=== PATIENT | male | born 1955 | race Caucasian/White ===

== ENCOUNTER 2020-01-08 13:24 | Emergency (ER) | payer SELFPAY ==
[2020-01-08] MEDS ORDERED: Ondansetron PF 4 MG/2 ML Vial ONE (14:16)
[2020-01-08 14:29] LABS: #Lymphocytes 1.4 thou/uL (1.20-3.40); #Monocytes 0.5 thou/uL (0.11-0.59); %Basophils 0.7 % (0.0-1.0); %Eosinophils 0.5 % (0.0-10.0); %Lymphocytes 20.5 % (21.0-51.0); %Monocytes 6.7 % (0.0-10.0); %Neutrophils 71.7 % (42.0-75.0); Hemoglobin 10.2 g/dL (14.0-18.0); Mean Corpuscular HGB CONC 35.3 g/dL (32.0-36.0); Mean Corpuscular Hemoglobin 32.9 pg (27.0-31.0); Mean Corpuscular Volume 93.1 fL (78.0-98.0); Mean Platelet Volume 5.8 fL (7.4-10.4); Platelet Count 327 thou/uL (130-400); RBC Distribution Width 12.6 % (11.5-14.5)
--- NOTE | 2020-01-08 14:35 | RAD ---
PORTABLE CHEST 1 VIEW: DATE: 01/08/2020. TIME: 2:27 PM. HISTORY: Altered mental status. Orthostatic hypotension. FINDINGS: There are no previous exams for comparison. The heart size is normal. The aorta is tortuous. The lungs are well expanded without lobar consolid ation, pneumothoraces, or pleural effusions. IMPRESSION: No acute process. POS: [facility]
[2020-01-08 14:44] LABS: ALT (SGPT) 8 U/L (8-55); AST (SGOT) 12 U/L (5-34); Albumin 3.9 g/dL (3.4-4.8); Alkaline Phosphatase 56 U/L (40-110); Anion Gap 12 mmol/L (10-20); BUN (Urea Nitrogen) 20 mg/dL (8.4-25.7); Bilirubin, Total 0.5 mg/dL (0.2-1.2); CK (CPK) 89 U/L (30-200); Calc. Creatinine Clearance 0 mL/min (70-130); Calcium 9.3 mg/dL (7.8-10.44); Carbon Dioxide 31 mmol/L (23-31); Chloride 96 mmol/L (98-107); Estimated GFR-MDRD 64; Globulin 2.6 g/dL (2.4-3.5); Glucose 130 mg/dL (80-115); Lipase 24 U/L (8-78); Potassium 4.6 mmol/L (3.5-5.1); Protein, Total 6.5 g/dL (5.8-8.1); Sodium 134 mmol/L (136-145)
[2020-01-08 15:15] LABS: Bilirubin Negative (Negative); Blood, Urine Negative (Negative); Clarity Clear (Clear); Glucose, Urine (Dipstick) Normal (Negative); Leukocyte Negative Leu/uL (Negative); Nitrite Negative (Negative); Protein, Urine (Dipstick) 10 mg/dL (Neg-Trace); Urobilinogen Normal mg/dL (Less than 2)
[2020-01-08] MEDS ORDERED: Lorazepam 2 MG/ML VIAL ONE (15:19)
--- NOTE | 2020-01-10 14:58 | EKG ---
Test Reason : Blood Pressure : / mmHG Vent. Rate : 071 BPM Atrial Rate : 071 BPM P-R Int : 150 ms QRS Dur : 080 ms QT Int : 420 ms P-R-T Axes : 080 -26 -34 degrees QTc Int : 456 ms Normal sinus rhythm Septal infarct , age undetermined Abnormal ECG Confirmed by MAGNOLIA GOMEZ, ELIDA ([id number]), telegraph editor SKYLER YADAV ([id number]) on 01/10/2020 2:58:22 PM Referred By: Confirmed By:ELIDA MERIDA MD
== END 2020-01-08 17:26 ==
LOC: ERS 13:24
DX: I95.9 Hypotension, unspecified (principal); E11.9 Type 2 diabetes mellitus without complications
CPT/HCPCS: 36415; 71045; 80053; 81003; 82550; 83690; 83880; 84484; 85025; 93005; 96361; 96374; J2060; J2405

== ENCOUNTER 2020-01-20 22:18 | Inpatient (IN) | payer OTHER ==
[2020-01-20] MEDS ORDERED: Cefepime 2 GM VIAL ONE (22:44)
[2020-01-20] MEDS ORDERED: Vancomycin 1 GM/200 ML BAG ONE (22:44)
[2020-01-20 22:54] LABS: Bilirubin Negative (Negative); Blood, Urine Negative (Negative); Clarity Clear (Clear); Glucose, Urine (Dipstick) Normal (Negative); Leukocyte Negative Leu/uL (Negative); Nitrite Negative (Negative); Protein, Urine (Dipstick) 20 mg/dL (Neg-Trace); Urobilinogen 3 mg/dL (Less than 2)
[2020-01-20 22:56] LABS: #Lymphocytes 0.5 thou/uL (1.20-3.40); #Monocytes 0.6 thou/uL (0.11-0.59); #Neutrophils 8.3 thou/uL (1.40-6.50); %Basophils 0.1 % (0.0-1.0); %Eosinophils 0.1 % (0.0-10.0); %Monocytes 5.9 % (0.0-10.0); %Neutrophils 88.9 % (42.0-75.0); Hemoglobin 10.2 g/dL (14.0-18.0); Mean Corpuscular HGB CONC 37.1 g/dL (32.0-36.0); Mean Corpuscular Hemoglobin 34.2 pg (27.0-31.0); Mean Corpuscular Volume 92.3 fL (78.0-98.0); Mean Platelet Volume 5.9 fL (7.4-10.4); Platelet Count 332 thou/uL (130-400); RBC Distribution Width 12.4 % (11.5-14.5); Red Blood Cell (RBC) Count 2.98 mill/uL (4.70-6.10); White Blood Cell (WBC) Count 9.3 thou/uL (4.8-10.8)
--- NOTE | 2020-01-20 23:01 | RAD ---
RADIOGRAPH CHEST 1 VIEW: DATE: 01/20/2020 TIME: 10:49 PM HISTORY: 64-year-old male with hypotension and fever COMPARISON: 01/08/2020 FINDINGS: There is a new finding of a patchy, approximately 6.5 x 4.5 cm opacity at the right medial lung base, silhouetting the right cardiac border. There is another new finding of mild small region of streaky density at the medial base of the left l ower lobe. The rest of the visualized lung parikh are clear. No pneumothorax. IMPRESSION: 1. Focal opacity at right medial lung base: Atelectasis versus pneumonia. 2. Mild streaky density at medial base of left lower lobe: Mild atelectasis versus pneumonia.
[2020-01-20 23:07] LABS: ALT (SGPT) 9 U/L (8-55); AST (SGOT) 13 U/L (5-34); Albumin 3.7 g/dL (3.4-4.8); Alkaline Phosphatase 49 U/L (40-110); Anion Gap 15 mmol/L (10-20); BUN (Urea Nitrogen) 21 mg/dL (8.4-25.7); Bilirubin, Total 0.8 mg/dL (0.2-1.2); Calc. Creatinine Clearance 0 mL/min (70-130); Calcium 8.6 mg/dL (7.8-10.44); Carbon Dioxide 29 mmol/L (23-31); Chloride 99 mmol/L (98-107); Estimated GFR-MDRD 76; Globulin 2.5 g/dL (2.4-3.5); Glucose 149 mg/dL (80-115); Potassium 3.5 mmol/L (3.5-5.1); Protein, Total 6.2 g/dL (5.8-8.1); Sodium 139 mmol/L (136-145)
[2020-01-20 23:23] LABS: INR-International Normal Ratio 1.1
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
[2020-01-21] MEDS ORDERED: Acetaminophen 650 MG Suppository PR PRN (00:38)
[2020-01-21] MEDS ORDERED: Dextrose 50% Abboject 50 ML SYRINGE SLOW IVP PRN (00:42)
[2020-01-21] MEDS ORDERED: Dextrose 5% in Water 1,000 ML IV PRN (00:42)
[2020-01-21 01:53] LABS: Lactic Acid 1.4 mmol/L (0.5-2.2)
[2020-01-21] MEDS ORDERED: Milk Of Magnesia 30 ML UDCUP PO PRN (02:15)
[2020-01-21 05:08] VITALS: BMI 23.0
[2020-01-21 06:42] LABS: ALT (SGPT) 7 U/L (8-55); AST (SGOT) 11 U/L (5-34); Albumin 3.2 g/dL (3.4-4.8); Alkaline Phosphatase 46 U/L (40-110); Anion Gap 12 mmol/L (10-20); BUN (Urea Nitrogen) 20 mg/dL (8.4-25.7); Bilirubin, Total 0.7 mg/dL (0.2-1.2); Calc. Creatinine Clearance 90 mL/min (70-130); Calcium 7.9 mg/dL (7.8-10.44); Carbon Dioxide 27 mmol/L (23-31); Chloride 101 mmol/L (98-107); Estimated GFR-MDRD 83; Globulin 2.4 g/dL (2.4-3.5); Glucose 192 mg/dL (80-115); Potassium 3.5 mmol/L (3.5-5.1); Protein, Total 5.6 g/dL (5.8-8.1); Sodium 136 mmol/L (136-145)
[2020-01-21 06:58] LABS: #Lymphocytes 0.8 thou/uL (1.20-3.40); #Monocytes 1.2 thou/uL (0.11-0.59); #Neutrophils 14.1 thou/uL (1.40-6.50); %Basophils 0.2 % (0.0-1.0); %Eosinophils 0.1 % (0.0-10.0); %Lymphocytes 5.2 % (21.0-51.0); %Monocytes 7.3 % (0.0-10.0); %Neutrophils 87.3 % (42.0-75.0); Hemoglobin 9.1 g/dL (14.0-18.0); Mean Corpuscular HGB CONC 36.3 g/dL (32.0-36.0); Mean Corpuscular Hemoglobin 33.6 pg (27.0-31.0); Mean Corpuscular Volume 92.6 fL (78.0-98.0); Mean Platelet Volume 6.3 fL (7.4-10.4); Platelet Count 296 thou/uL (130-400); RBC Distribution Width 12.4 % (11.5-14.5); Red Blood Cell (RBC) Count 2.72 mill/uL (4.70-6.10); White Blood Cell (WBC) Count 16.2 thou/uL (4.8-10.8)
--- NOTE | 2020-01-21 07:38 | CT ---
PRELIMINARY REPORT/[facility]/EMERGENCY AFTER HOURS PROCEDURE: This report was discussed with Dylan Brown DO by Lang Davies on Jan 21, 2020 02:11:00 CDT. Addendum electronically signed by Lang Davies on January 21, 2020 2:11:05 AM CDT EXAM: CT Head Without Intravenous Contrast. CLINICAL HISTORY: Fall, AMS TECHNIQUE: Axial computed tomography images of the head/brain without intravenous contrast. COMPARISON: None provided. FINDINGS: BRAIN: No acute intraparenchymal hemorrhage. No mass lesion. No CT evidence for acute territorial inf arct. No midline shift or extra-axial collection. Hypodensity within the right basal ganglia possibl y from prior lacunar infarct. VENTRICLES: Prominence of the ventricles. No sub-ependymal edema. ORBITS: The orbits are unremarkable. SINUSES AND MASTOIDS: The paranasal sinuses and mastoid air cells are clear. SOFT TISSUES: No significant facial or scalp soft tissue swelling evident. No radiopaque foreign body is seen. BONES: No acute skull fracture. IMPRESSION: 1. No acute intracranial hemorrhage. 2. Enlargement of the ventricles out of proportion to sulcal enlargement which is concerning for pos sible normal pressure hydrocephalus. Correlate with clinical symptoms. ELECTRONICALLY SIGNED BY: Emre Culver M.D. Jan 21, 2020 2:07:35 AM CDT This report is intended for review by the ordering physician only, in accordance of law. If you recei ve this report in error, please call [facility] at [phone]. FINAL REPORT CT OF BRAIN WITHOUT CONTRAST: Date: 01/21/2020 INDICATION: History of fall with altered mental status. COMPARISON: None. FINDINGS: No acute infarct, hemorrhage, or hydrocephalus is present. The septum pellucidum and third ventricle are midline. Skull and extracranial soft tissues appear within normal limits. There is prominent Virc how-Fox space involving the right inferior globus pallidus. There is mild generalized cerebral atro phy. There is slight prominence of the lateral ventricles likely related to the slight generalized vo lume loss. IMPRESSION: No definite acute intracranial abnormality. I agree with the preliminary report provided by [facility]. The density involving the inferior right globus pallidus is likely reflective of a Virchow-Fox spac e rather than a lacunar infarct. There is mild generalized cerebral atrophy with some accentuation of the lateral ventricles, likely from ex-vacuo dilation. POS: [facility]
[2020-01-21] MEDS ORDERED: Fludrocortisone Acetate 0.1 MG TAB PO SCH ×2 (09:00→10:30)
[2020-01-21] MEDS: Citalopram 20 MG TAB PO SCH (09:12)
[2020-01-21] MEDS: Atorvastatin Calcium 20 MG TAB PO SCH (09:13)
[2020-01-21] MEDS: Docusate 100 MG CAP PO SCH (09:13)
[2020-01-21] MEDS: Famotidine 20 MG TAB PO SCH ×2 (09:13→21:43)
[2020-01-21] MEDS: metFORMIN 500 MG TAB PO SCH ×2 (09:13→17:37)
[2020-01-21] MEDS: Sodium Chloride 1 GM TAB PO SCH ×3 (09:13→21:43)
[2020-01-21] MEDS ORDERED: Azithromycin 500 MG in Sodium Chloride 0.9% 250 ML 250 ML IVPB SCH (10:15)
[2020-01-21] MEDS: Ondansetron PF 4 MG/2 ML Vial IVP PRN (10:36)
[2020-01-21] MEDS ORDERED: Vancomycin HCl 1.25 GM in Sodium Chloride 0.9% 250 ML 250 ML IVPB SCH (11:00)
[2020-01-21] MEDS ORDERED: Cefepime 2 GM in Sodium Chloride 0.9% 100 ML IVPB SCH (11:00)
[2020-01-21] MEDS: cefTRIAXone\\ROCEPHIN 1 GM in Sodium Chloride 0.9% 100 ML IVPB SCH (12:55)
[2020-01-22 05:30] LABS: #Lymphocytes 1.2 thou/uL (1.20-3.40); #Monocytes 0.7 thou/uL (0.11-0.59); #Neutrophils 9.4 thou/uL (1.40-6.50); %Basophils 0.1 % (0.0-1.0); %Eosinophils 0.2 % (0.0-10.0); %Lymphocytes 10.6 % (21.0-51.0); %Monocytes 6.1 % (0.0-10.0); Hemoglobin 8.3 g/dL (14.0-18.0); Mean Corpuscular Hemoglobin 34.7 pg (27.0-31.0); Mean Corpuscular Volume 93.7 fL (78.0-98.0); Mean Platelet Volume 6.1 fL (7.4-10.4); Platelet Count 225 thou/uL (130-400); RBC Distribution Width 12.3 % (11.5-14.5); Red Blood Cell (RBC) Count 2.38 mill/uL (4.70-6.10); White Blood Cell (WBC) Count 11.3 thou/uL (4.8-10.8)
[2020-01-22 05:53] LABS: ALT (SGPT) Less than 7 U/L (8-55); AST (SGOT) 10 U/L (5-34); Alkaline Phosphatase 45 U/L (40-110); Anion Gap 12 mmol/L (10-20); BUN (Urea Nitrogen) 14 mg/dL (8.4-25.7); Bilirubin, Total 0.7 mg/dL (0.2-1.2); Calc. Creatinine Clearance 104 mL/min (70-130); Calcium 8.2 mg/dL (7.8-10.44); Carbon Dioxide 28 mmol/L (23-31); Chloride 99 mmol/L (98-107); Estimated GFR-MDRD Greater than 90; Globulin 2.5 g/dL (2.4-3.5); Glucose 130 mg/dL (80-115); Potassium 3.9 mmol/L (3.5-5.1); Protein, Total 5.5 g/dL (5.8-8.1); Sodium 135 mmol/L (136-145)
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
[2020-01-22] MEDS: Famotidine 20 MG TAB PO SCH ×2 (09:37→23:12)
[2020-01-22] MEDS: metFORMIN 500 MG TAB PO SCH ×2 (09:37→16:28)
[2020-01-22] MEDS: Sodium Chloride 1 GM TAB PO SCH ×3 (09:37→23:12)
[2020-01-22] MEDS: Citalopram 20 MG TAB PO SCH (09:38)
[2020-01-22] MEDS: Atorvastatin Calcium 20 MG TAB PO SCH (09:38)
[2020-01-22] MEDS: Fludrocortisone Acetate 0.1 MG TAB PO SCH (09:38)
[2020-01-22] MEDS: Docusate 100 MG CAP PO SCH (09:38)
[2020-01-22] MEDS: Ondansetron PF 4 MG/2 ML Vial IVP PRN (09:52)
[2020-01-22] MEDS ORDERED: Azithromycin 250 MG in Sodium Chloride 0.9% 500 ML IVPB SCH (10:00)
[2020-01-22] MEDS: cefTRIAXone\\ROCEPHIN 1 GM in Sodium Chloride 0.9% 100 ML IVPB SCH (12:57)
[2020-01-23 05:13] LABS: #Lymphocytes 1.1 thou/uL (1.20-3.40); #Monocytes 0.6 thou/uL (0.11-0.59); #Neutrophils 7.6 thou/uL (1.40-6.50); %Basophils 0.1 % (0.0-1.0); %Eosinophils 0.2 % (0.0-10.0); %Lymphocytes 11.8 % (21.0-51.0); %Neutrophils 81.9 % (42.0-75.0); Hemoglobin 8.2 g/dL (14.0-18.0); Mean Corpuscular HGB CONC 35.7 g/dL (32.0-36.0); Mean Corpuscular Hemoglobin 33.4 pg (27.0-31.0); Mean Corpuscular Volume 93.7 fL (78.0-98.0); Platelet Count 240 thou/uL (130-400); RBC Distribution Width 12.1 % (11.5-14.5); Red Blood Cell (RBC) Count 2.45 mill/uL (4.70-6.10); White Blood Cell (WBC) Count 9.2 thou/uL (4.8-10.8)
[2020-01-23 05:39] LABS: ALT (SGPT) 11 U/L (8-55); AST (SGOT) 11 U/L (5-34); Albumin 3.1 g/dL (3.4-4.8); Alkaline Phosphatase 46 U/L (40-110); Anion Gap 8 mmol/L (10-20); BUN (Urea Nitrogen) 10 mg/dL (8.4-25.7); Bilirubin, Total 0.5 mg/dL (0.2-1.2); Calc. Creatinine Clearance 116 mL/min (70-130); Calcium 8.1 mg/dL (7.8-10.44); Carbon Dioxide 32 mmol/L (23-31); Chloride 101 mmol/L (98-107); Estimated GFR-MDRD Greater than 90; Globulin 2.1 g/dL (2.4-3.5); Glucose 133 mg/dL (80-115); Potassium 3.3 mmol/L (3.5-5.1); Protein, Total 5.2 g/dL (5.8-8.1); Sodium 138 mmol/L (136-145)
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
[2020-01-23] MEDS: Citalopram 20 MG TAB PO SCH (08:36)
[2020-01-23] MEDS: metFORMIN 500 MG TAB PO SCH ×2 (08:36→16:16)
[2020-01-23] MEDS: Docusate 100 MG CAP PO SCH (08:37)
[2020-01-23] MEDS: Atorvastatin Calcium 20 MG TAB PO SCH (08:37)
[2020-01-23] MEDS: Sodium Chloride 1 GM TAB PO SCH ×3 (08:37→20:15)
[2020-01-23] MEDS: Fludrocortisone Acetate 0.1 MG TAB PO SCH (08:37)
[2020-01-23] MEDS: Famotidine 20 MG TAB PO SCH ×2 (08:37→20:15)
[2020-01-23] MEDS: Azithromycin 250 MG TAB PO SCH (09:44)
[2020-01-23] MEDS: Cefdinir 300 MG CAP PO SCH ×2 (09:44→20:14)
[2020-01-23] MEDS: HumaLOG 300 UNITS/3 ML VIAL SC PRN (17:14)
[2020-01-24 05:53] LABS: #Lymphocytes 1.2 thou/uL (1.20-3.40); #Monocytes 0.6 thou/uL (0.11-0.59); #Neutrophils 5.7 thou/uL (1.40-6.50); %Basophils 0.1 % (0.0-1.0); %Eosinophils 0.2 % (0.0-10.0); %Lymphocytes 16.3 % (21.0-51.0); %Monocytes 7.7 % (0.0-10.0); %Neutrophils 75.8 % (42.0-75.0); Hemoglobin 9.2 g/dL (14.0-18.0); Mean Corpuscular HGB CONC 36.2 g/dL (32.0-36.0); Mean Corpuscular Hemoglobin 33.7 pg (27.0-31.0); Mean Corpuscular Volume 93.2 fL (78.0-98.0); Mean Platelet Volume 6.1 fL (7.4-10.4); Platelet Count 302 thou/uL (130-400); Red Blood Cell (RBC) Count 2.72 mill/uL (4.70-6.10); White Blood Cell (WBC) Count 7.6 thou/uL (4.8-10.8)
[2020-01-24 06:17] LABS: ALT (SGPT) 10 U/L (8-55); AST (SGOT) 12 U/L (5-34); Albumin 3.2 g/dL (3.4-4.8); Alkaline Phosphatase 53 U/L (40-110); Anion Gap 10 mmol/L (10-20); BUN (Urea Nitrogen) 9 mg/dL (8.4-25.7); Bilirubin, Total 0.4 mg/dL (0.2-1.2); Calc. Creatinine Clearance 118 mL/min (70-130); Calcium 8.6 mg/dL (7.8-10.44); Carbon Dioxide 33 mmol/L (23-31); Chloride 97 mmol/L (98-107); Estimated GFR-MDRD Greater than 90; Globulin 2.7 g/dL (2.4-3.5); Glucose 134 mg/dL (80-115); Potassium 3.2 mmol/L (3.5-5.1); Protein, Total 5.9 g/dL (5.8-8.1); Sodium 137 mmol/L (136-145)
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
[2020-01-24] MEDS ORDERED: Potassium Chloride 20 MEQ TAB PO SCH (07:15)
[2020-01-24] MEDS: Docusate 100 MG CAP PO SCH (08:06)
[2020-01-24] MEDS: Famotidine 20 MG TAB PO SCH ×2 (08:06→20:03)
[2020-01-24] MEDS: Atorvastatin Calcium 20 MG TAB PO SCH (08:06)
[2020-01-24] MEDS: Fludrocortisone Acetate 0.1 MG TAB PO SCH (08:06)
[2020-01-24] MEDS: Sodium Chloride 1 GM TAB PO SCH ×3 (08:06→20:03)
[2020-01-24] MEDS: metFORMIN 500 MG TAB PO SCH ×2 (08:06→16:57)
[2020-01-24] MEDS: Azithromycin 250 MG TAB PO SCH (08:06)
[2020-01-24] MEDS: Citalopram 20 MG TAB PO SCH (08:06)
[2020-01-24] MEDS: Cefdinir 300 MG CAP PO SCH ×2 (08:07→20:03)
[2020-01-24] MEDS: Acetaminophen 325 MG TAB PO PRN ×2 (11:47→16:57)
[2020-01-24] MEDS: HumaLOG 300 UNITS/3 ML VIAL SC PRN ×2 (11:48→20:05)
[2020-01-25 06:06] LABS: Anion Gap 12 mmol/L (10-20); BUN (Urea Nitrogen) 9 mg/dL (8.4-25.7); Calc. Creatinine Clearance 107 mL/min (70-130); Calcium 8.7 mg/dL (7.8-10.44); Carbon Dioxide 32 mmol/L (23-31); Chloride 99 mmol/L (98-107); Estimated GFR-MDRD Greater than 90; Glucose 123 mg/dL (80-115); Potassium 4.3 mmol/L (3.5-5.1); Sodium 139 mmol/L (136-145)
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
[2020-01-25] MEDS: Cefdinir 300 MG CAP PO SCH ×2 (08:09→20:32)
[2020-01-25] MEDS: Fludrocortisone Acetate 0.1 MG TAB PO SCH (08:09)
[2020-01-25] MEDS: Famotidine 20 MG TAB PO SCH ×2 (08:09→20:32)
[2020-01-25] MEDS: Citalopram 20 MG TAB PO SCH (08:09)
[2020-01-25] MEDS: Sodium Chloride 1 GM TAB PO SCH ×3 (08:09→20:32)
[2020-01-25] MEDS: Atorvastatin Calcium 20 MG TAB PO SCH (08:09)
[2020-01-25] MEDS: metFORMIN 500 MG TAB PO SCH ×2 (08:09→17:27)
[2020-01-25] MEDS: Azithromycin 250 MG TAB PO SCH (08:09)
[2020-01-25] MEDS: Docusate 100 MG CAP PO SCH (08:09)
[2020-01-25] MEDS: Acetaminophen 325 MG TAB PO PRN (09:46)
[2020-01-25] MEDS: HumaLOG 300 UNITS/3 ML VIAL SC PRN ×2 (12:59→17:27)
[2020-01-25] MEDS: hydrOXYzine 25 MG TAB PO PRN (18:14)
[2020-01-26] MEDS: HumaLOG 300 UNITS/3 ML VIAL SC PRN ×2 (06:20→11:36)
[2020-01-26] MEDS: Docusate 100 MG CAP PO SCH (09:29)
[2020-01-26] MEDS: Sodium Chloride 1 GM TAB PO SCH ×3 (09:30→20:34)
[2020-01-26] MEDS: Citalopram 20 MG TAB PO SCH (09:30)
[2020-01-26] MEDS: Atorvastatin Calcium 20 MG TAB PO SCH (09:30)
[2020-01-26] MEDS: Azithromycin 250 MG TAB PO SCH (09:30)
[2020-01-26] MEDS: Cefdinir 300 MG CAP PO SCH (09:30)
[2020-01-26] MEDS: Fludrocortisone Acetate 0.1 MG TAB PO SCH (09:30)
[2020-01-26] MEDS: Famotidine 20 MG TAB PO SCH ×2 (09:30→20:34)
[2020-01-26] MEDS: metFORMIN 500 MG TAB PO SCH ×2 (09:30→16:45)
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
[2020-01-26] MEDS ORDERED: Cefdinir 300 MG CAP PO SCH (21:00)
[2020-01-26] MEDS: hydrOXYzine 25 MG TAB PO PRN (21:45)
[2020-01-27] MEDS: Citalopram 20 MG TAB PO SCH (08:18)
[2020-01-27] MEDS: Docusate 100 MG CAP PO SCH (08:18)
[2020-01-27] MEDS: Sodium Chloride 1 GM TAB PO SCH ×3 (08:18→20:16)
[2020-01-27] MEDS: Atorvastatin Calcium 20 MG TAB PO SCH (08:18)
[2020-01-27] MEDS: Famotidine 20 MG TAB PO SCH ×2 (08:18→20:15)
[2020-01-27] MEDS: Fludrocortisone Acetate 0.1 MG TAB PO SCH (08:18)
[2020-01-27] MEDS: metFORMIN 500 MG TAB PO SCH ×2 (08:18→17:37)
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
--- NOTE | 2020-01-27 14:20 | EKG ---
Test Reason : Blood Pressure : / mmHG Vent. Rate : 105 BPM Atrial Rate : 105 BPM P-R Int : 140 ms QRS Dur : 084 ms QT Int : 342 ms P-R-T Axes : 072 -19 262 degrees QTc Int : 452 ms Sinus tachycardia No STEMI Abnormal ECG Confirmed by MEGHA COLLAZO M.D. ([id number]), film editor REJI ROSADO ([id number] on 01/27/2020 2:20:29 PM Referred By: Confirmed By:MEGHA COLLAZO M.D.
[2020-01-27] MEDS: hydrOXYzine 25 MG TAB PO PRN (19:56)
[2020-01-27] MEDS: HumaLOG 300 UNITS/3 ML VIAL SC PRN (20:15)
[2020-01-28] MEDS: metFORMIN 500 MG TAB PO SCH ×2 (08:13→17:00)
[2020-01-28] MEDS: Citalopram 20 MG TAB PO SCH (08:13)
[2020-01-28] MEDS: Sodium Chloride 1 GM TAB PO SCH ×3 (08:13→20:07)
[2020-01-28] MEDS: Fludrocortisone Acetate 0.1 MG TAB PO SCH (08:13)
[2020-01-28] MEDS: Atorvastatin Calcium 20 MG TAB PO SCH (08:13)
[2020-01-28] MEDS: Famotidine 20 MG TAB PO SCH ×2 (08:13→20:07)
[2020-01-28] MEDS: Enoxaparin Sodium 40 MG/0.4 ML SYRINGE SC SCH (08:13)
[2020-01-28] MEDS: Docusate 100 MG CAP PO SCH (08:13)
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
[2020-01-28] MEDS: HumaLOG 300 UNITS/3 ML VIAL SC PRN (12:53)
[2020-01-28] MEDS: hydrOXYzine 25 MG TAB PO PRN (18:37)
[2020-01-29] MEDS: Acetaminophen 325 MG TAB PO PRN (04:47)
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
[2020-01-29] MEDS: Ondansetron ODT 8 MG TAB SL PRN (09:53)
[2020-01-29] MEDS: Enoxaparin Sodium 40 MG/0.4 ML SYRINGE SC SCH (09:58)
[2020-01-29] MEDS: metFORMIN 500 MG TAB PO SCH ×2 (09:58→17:39)
[2020-01-29] MEDS: Fludrocortisone Acetate 0.1 MG TAB PO SCH (09:58)
[2020-01-29] MEDS: Atorvastatin Calcium 20 MG TAB PO SCH (09:58)
[2020-01-29] MEDS: Docusate 100 MG CAP PO SCH (09:58)
[2020-01-29] MEDS: Famotidine 20 MG TAB PO SCH ×2 (09:58→19:39)
[2020-01-29] MEDS: Citalopram 20 MG TAB PO SCH (09:58)
[2020-01-29] MEDS: Sodium Chloride 1 GM TAB PO SCH ×3 (09:58→19:39)
[2020-01-29] MEDS: HumaLOG 300 UNITS/3 ML VIAL SC PRN (12:03)
[2020-01-29] MEDS: hydrOXYzine 25 MG TAB PO PRN (19:39)
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
[2020-01-30] MEDS: Fludrocortisone Acetate 0.1 MG TAB PO SCH (08:25)
[2020-01-30] MEDS: Atorvastatin Calcium 20 MG TAB PO SCH (08:25)
[2020-01-30] MEDS: Sodium Chloride 1 GM TAB PO SCH ×3 (08:25→20:15)
[2020-01-30] MEDS: metFORMIN 500 MG TAB PO SCH ×2 (08:25→16:28)
[2020-01-30] MEDS: Famotidine 20 MG TAB PO SCH ×2 (08:25→20:15)
[2020-01-30] MEDS: Docusate 100 MG CAP PO SCH (08:25)
[2020-01-30] MEDS: Citalopram 20 MG TAB PO SCH (08:25)
[2020-01-30] MEDS: Enoxaparin Sodium 40 MG/0.4 ML SYRINGE SC SCH (08:26)
[2020-01-30] MEDS: HumaLOG 300 UNITS/3 ML VIAL SC PRN (16:29)
[2020-01-30] MEDS ORDERED: hydrOXYzine 25 MG TAB PO SCH (17:15)
[2020-01-30] MEDS: hydrOXYzine 25 MG TAB PO PRN (21:22)
[2020-01-30] MEDS: Acetaminophen 325 MG TAB PO PRN (21:22)
[2020-01-31] MEDS ORDERED: Calcium Carbonate 500 MG ChewTAB PO PRN (07:54)
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
[2020-01-31] MEDS: Docusate 100 MG CAP PO SCH (08:18)
[2020-01-31] MEDS: Lisinopril 5 MG TAB PO SCH (08:18)
[2020-01-31] MEDS: metFORMIN 500 MG TAB PO SCH ×2 (08:18→18:20)
[2020-01-31] MEDS: Famotidine 20 MG TAB PO SCH ×2 (08:18→19:33)
[2020-01-31] MEDS: Enoxaparin Sodium 40 MG/0.4 ML SYRINGE SC SCH (08:18)
[2020-01-31] MEDS: Citalopram 20 MG TAB PO SCH (08:18)
[2020-01-31] MEDS: Atorvastatin Calcium 20 MG TAB PO SCH (08:18)
[2020-01-31] MEDS: Fludrocortisone Acetate 0.1 MG TAB PO SCH (08:24)
[2020-01-31] MEDS: Sodium Chloride 1 GM TAB PO SCH ×3 (08:24→19:34)
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
[2020-01-31] MEDS: Acetaminophen 325 MG TAB PO PRN (14:58)
[2020-01-31] MEDS ORDERED: hydrOXYzine 25 MG TAB PO SCH (18:15)
[2020-01-31] MEDS: Ondansetron ODT 8 MG TAB SL PRN (18:50)
[2020-01-31] MEDS ORDERED: Lorazepam 2 MG/ML VIAL SLOW IVP SCH (19:15)
[2020-02-01] MEDS: hydrOXYzine 25 MG TAB PO PRN (00:08)
[2020-02-01] MEDS: Acetaminophen 325 MG TAB PO PRN (00:08)
[2020-02-01] MEDS ORDERED: Lorazepam 2 MG/ML VIAL SLOW IVP SCH ×2 (02:30→20:15)
[2020-02-01 08:38] LABS: #Lymphocytes 1.7 thou/uL (1.20-3.40); #Monocytes 0.4 thou/uL (0.11-0.59); #Neutrophils 3.4 thou/uL (1.40-6.50); %Basophils 0.6 % (0.0-1.0); %Eosinophils 0.6 % (0.0-10.0); %Lymphocytes 30.9 % (21.0-51.0); %Monocytes 7.7 % (0.0-10.0); %Neutrophils 60.1 % (42.0-75.0); Hemoglobin 10.3 g/dL (14.0-18.0); Mean Corpuscular HGB CONC 34.8 g/dL (32.0-36.0); Mean Corpuscular Hemoglobin 32.2 pg (27.0-31.0); Mean Corpuscular Volume 92.3 fL (78.0-98.0); Mean Platelet Volume 5.3 fL (7.4-10.4); Platelet Count 402 thou/uL (130-400); Red Blood Cell (RBC) Count 3.19 mill/uL (4.70-6.10); White Blood Cell (WBC) Count 5.6 thou/uL (4.8-10.8)
[2020-02-01 08:55] LABS: Anion Gap 11 mmol/L (10-20); BUN (Urea Nitrogen) 11 mg/dL (8.4-25.7); Calc. Creatinine Clearance 99 mL/min (70-130); Carbon Dioxide 32 mmol/L (23-31); Chloride 100 mmol/L (98-107); Estimated GFR-MDRD Greater than 90; Glucose 132 mg/dL (80-115); Potassium 3.5 mmol/L (3.5-5.1); Sodium 139 mmol/L (136-145)
--- NOTE | 2020-02-01 10:29 | CT ---
HEAD CT WITHOUT CONTRAST: Date: 02/01/2020 COMPARISON: 01/31/2020. HISTORY: Increasing weakness, left arm weakness. TECHNIQUE: Axial CT imaging at 5 mm intervals from vertex through skull base without contrast. FINDINGS: There is scalp swelling in the right frontal region anteriorly. The visualized paranasal sinuses and mastoid air cells are well aerated. There is no displaced calvarial fracture. No intracranial hemorrh age, midline shift, mass effect, or ventricular enlargement. IMPRESSION: No intracranial hemorrhage. If there is clinical concern for acute infarction, brain MRI suggested. POS: [facility]
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
[2020-02-01] MEDS: Enoxaparin Sodium 40 MG/0.4 ML SYRINGE SC SCH (12:54)
[2020-02-01] MEDS: metFORMIN 500 MG TAB PO SCH ×2 (12:54→16:08)
[2020-02-01] MEDS: Citalopram 20 MG TAB PO SCH (12:54)
[2020-02-01] MEDS: Atorvastatin Calcium 20 MG TAB PO SCH (12:54)
[2020-02-01] MEDS: Docusate 100 MG CAP PO SCH (12:54)
[2020-02-01] MEDS: Famotidine 20 MG TAB PO SCH ×2 (12:55→20:11)
[2020-02-01] MEDS: Lisinopril 5 MG TAB PO SCH (12:55)
[2020-02-01] MEDS: Fludrocortisone Acetate 0.1 MG TAB PO SCH (12:55)
[2020-02-01] MEDS: Sodium Chloride 1 GM TAB PO SCH ×3 (12:55→20:11)
[2020-02-01] MEDS ORDERED: Bisacodyl 10 MG SUPP PR PRN (13:22)
[2020-02-01] MEDS ORDERED: Polyethylene Glycol 3350 17 GM Packet PO PRN (13:24)
[2020-02-01] MEDS: Bisacodyl 5 MG TAB PO SCH ×2 (15:32→16:07)
--- NOTE | 2020-02-01 16:57 | RAD ---
LEFT SHOULDER THREE VIEWS: History: Shoulder pain. FINDINGS: No evidence of fracture or dislocation. AC joint normally aligned. Normal degenerative change. IMPRESSION: No acute findings. POS: [facility]
[2020-02-01] MEDS ORDERED: Divalproex Sodium 250 MG (DR) TAB PO SCH (22:45)
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
[2020-02-02] MEDS: Atorvastatin Calcium 20 MG TAB PO SCH (08:25)
[2020-02-02] MEDS: Citalopram 20 MG TAB PO SCH (08:25)
[2020-02-02] MEDS: Lisinopril 5 MG TAB PO SCH (08:25)
[2020-02-02] MEDS: metFORMIN 500 MG TAB PO SCH ×2 (08:25→17:33)
[2020-02-02] MEDS: Enoxaparin Sodium 40 MG/0.4 ML SYRINGE SC SCH (08:25)
[2020-02-02] MEDS: Sodium Chloride 1 GM TAB PO SCH ×2 (08:25→15:08)
[2020-02-02] MEDS: Fludrocortisone Acetate 0.1 MG TAB PO SCH (08:25)
[2020-02-02] MEDS: Famotidine 20 MG TAB PO SCH (08:25)
[2020-02-02] MEDS: Docusate 100 MG CAP PO SCH (08:25)
[2020-02-02 16:22] VITALS: BP 119/74; TEMP 97.8
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
== END 2020-02-02 19:07 | DRG 871 ==
LOC: ERS 22:18 → T4-B 23:42
PROVIDERS: ADMIT Family Medicine; ATTEND Family Medicine
DX: A41.9 Sepsis, unspecified organism (principal); J18.9 Pneumonia, unspecified organism; G93.41 Metabolic encephalopathy; Z20.828 Contact with and (suspected) exposure to other viral communicable diseases; F03.91 Unspecified dementia, unspecified severity, with behavioral disturbance; R65.20 Severe sepsis without septic shock; F31.9 Bipolar disorder, unspecified; E11.9 Type 2 diabetes mellitus without complications; E78.5 Hyperlipidemia, unspecified; K21.9 Gastro-esophageal reflux disease without esophagitis; I10 Essential (primary) hypertension; S80.212A Abrasion, left knee, initial encounter; S50.812A Abrasion of left forearm, initial encounter; R29.6 Repeated falls; R29.898 Other symptoms and signs involving the musculoskeletal system; Z88.0 Allergy status to penicillin; V89.2XXA Person injured in unspecified motor-vehicle accident, traffic, initial encounter; Z78.1 Physical restraint status; Z89.422 Acquired absence of other left toe(s); Z79.899 Other long term (current) drug therapy; Z79.84 Long term (current) use of oral hypoglycemic drugs
CPT/HCPCS: 36415; 36416; 70450; 71045; 80048; 80053; 80164; 81003; 83036; 83605; 84145; 85025; 85610; 85730; 87040; 87081; 87086; 87430; 87633; 87804; 93005; 96361; 96365; 96374; J0456; J0692; J0696; J1650; J2060; J2405; J3370; J3490; J7050; Q0162; U0001